=== PATIENT | female | born 1945 | race African-American/Black ===

== ENCOUNTER → 2017-01-04 | Outpatient (CLI) | payer MEDICARE, OTHER ==
[2016-12-28 11:17] VITALS: BP 132/81
[~2017-01-04] MED LIST: AMLO10TA2; ASPI-482 PO; ASPI-612 PO; ATOR10TA60 PO; FURO20TA3 PO; GLIP2.5T4 PO; GLIP5TAB22; LISI-338 PO; LISI2.5T; METO50TA10 PO; MULT1TAB6 PO
--- NOTE | 2017-01-04 11:10 | RAD ---
Indication lung nodule. PET/CT was performed from the skull through the proximal thigh.. CT was performed primarily for localization and attenuation purposes as opposed to primary diagnostic purposes. Blood sugar during the examination was 149. 13.3 mCi of FDG was administered. No prior PET/CT imaging is available. Note is made of the CT examination of the chest 12/24/[address] the visualized brain appears unremarkable. No abnormality is seen in the neck. Known parenchymal soft tissue mass in the right upper lobe is reproduced. There is a suggested small mass in the right upper lobe medially, CT imaging 150. Right pleural effusion is noted. Pretracheal soft tissue mass is noted. There is moderately extensive coronary artery calcification. Imaging through the abdomen and pelvis shows no acute or significant finding. There is some free fluid in the dependent portion of the pelvis. Diverticular disease without evidence of active inflammation is seen associated with the sigmoid colon. On PET the spiculated mass in the right upper lobe is moderately FDG avid with a maximum SUV of approximately 2.9. Pretracheal soft tissue mass in the mediastinum is FDG avid, maximum SUV 4.9. There is, additionally, at least 2 moderately FDG avid right hilar lymph nodes, maximum SUV 3.8. The findings are most compatible with primary malignancy in the right upper lobe with associated metastatic disease to the right hilum and mediastinum. The small pulmonary nodule, suggested on CT medially in the right upper lobe, is not FDG avid. The FDG is physiologically distributed in the abdomen and pelvis. IMPRESSION: Chest findings most compatible with primary malignancy in the right upper lobe with associated metastatic disease to the right hilum and mediastinum. Ancillary findings on CT include a moderate right pleural effusion, some free fluid in the dependent portion of the pelvis and diverticular disease predominantly centered on the sigmoid colon
== END | disposition home or self-care (01) ==
LOC: PETSC 08:00
PROVIDERS: ATTEND Internal Medicine Critical Care Medicine
DX: C34.90 Malignant neoplasm of unspecified part of unspecified bronchus or lung (principal)
CPT/HCPCS: 78815; A9552

== ENCOUNTER → 2017-01-12 | Outpatient (CLI) | payer MEDICARE, OTHER ==
[2016-12-28 11:17] VITALS: BP 132/81
[~2017-01-12] MED LIST changes: -ASPI-612 PO; +ASPI81TA9 PO; +GADOBUTROL 7.5 MMOL/7.5 ML VIAL IV ONE
--- NOTE | 2017-01-12 12:05 | RAD ---
EXAM: Brain MRI with and without contrast. HISTORY: Lung cancer. TECHNIQUE: Multiplanar, multisequence magnetic resonance imaging of the brain was performed prior to and following the administration of 7.5 cc Gadavist intravenous contrast. COMPARISON: None. FINDINGS: There is no restricted diffusion to suggest acute or subacute infarction. There is no susceptibility effect to suggest hemorrhage. There is no mass effect or midline shift. There is no hydrocephalus. There are few scattered focal areas of signal change within the cerebral white matter, a nonspecific finding likely due to chronic small vessel disease. There is mild cerebral volume loss. There is a dilated perivascular space within the left putamen. There is a tiny dilated perivascular space or chronic lacunar infarct within the right thalamus. The orbits, paranasal sinuses and mastoid air cells are unremarkable. There are normal flow voids within the cerebral vessels. No enhancing lesion is seen. IMPRESSION: 1. No acute intracranial finding. 2. Scattered foci of signal change throughout the cerebral white matter, a nonspecific finding likely due to chronic small vessel disease. 3. Possible tiny chronic lacunar infarct within the right thalamus. 4. Cerebral volume loss. Electronically signed by: Sylvia Chang MD (01/12/2017 12:01 PM)
== END | disposition home or self-care (01) ==
LOC: MRI 09:57
PROVIDERS: ATTEND Internal Medicine Hematology & Oncology
DX: C34.11 Malignant neoplasm of upper lobe, right bronchus or lung (principal); I10 Essential (primary) hypertension; Z79.01 Long term (current) use of anticoagulants; Z79.4 Long term (current) use of insulin
CPT/HCPCS: 70553; A9585

== ENCOUNTER 2017-02-21 06:56 | Outpatient (CLI) | payer MEDICARE, OTHER ==
[2017-02-21] VITALS (8 sets, daily range): BP systolic 106–145; BP diastolic 85–95
[~2017-02-21] VITALS: Ht 170.2 cm; Wt 71.2 kg
[~2017-02-21 06:56] MED LIST changes: +ASPI-612 PO; -ASPI81TA9 PO; -GADOBUTROL 7.5 MMOL/7.5 ML VIAL IV ONE
[2017-02-21 07:54] LABS: BASO % 1 % (0-3); CALCIUM 9.1 mg/dL (8.5-10.1); CREATININE 0.8 mg/dL (0.6-1.0); EOS % 3 % (0-3); GFR 85.1; HEMATOCRIT 46.8 % (36.0-47.0); HEMOGLOBIN 15.1 g/dL (12.0-15.5); LYMPH # 0.9 x10^3/uL (1.0-4.8); LYMPH % 25 % (24-48); MEAN CORPUSCULAR HEMOGLOBIN 29 pg (25-35); MEAN CORPUSCULAR HGB CONC 32 g/dL (31-37); MEAN CORPUSCULAR VOLUME 91 fL (79-100); MONO % 18 % (0-9); NEUT % 54 % (31-73); PLATELET COUNT 240 x10^3/uL (140-400); POTASSIUM 3.8 mmol/L (3.5-5.1); RED BLOOD COUNT 5.15 x10^6/uL (3.50-5.40); RED CELL DISTRIBUTION WIDTH 16.3 % (11.5-14.5); WHITE BLOOD COUNT 3.5 x10^3/uL (4.0-11.0)
[2017-02-21] MEDS ORDERED: LIDOCAINE 1%/EPI 1:100,000 20 ML VIAL. ONE (08:00)
[2017-02-21] MEDS ORDERED: HEPARIN PF 500 UNIT/5 ML DISP.SYRIN. IV ONE ×2 (08:00→09:00)
[2017-02-21 08:21] LABS: INR 1.1 (0.8-1.1); PROTHROMBIN TIME PATIENT 13.5 SEC (11.7-14.0)
[2017-02-21] MEDS ORDERED: MIDAZOLAM HCL/PF 2 MG/2 ML VIAL. ONE (08:44)
[2017-02-21] MEDS ORDERED: fentaNYL PF VIAL 100 MCG/2 ML VIAL ONE (08:44)
[2017-02-21] MEDS ORDERED: LIDOCAINE 1% / SOD BICARB 8.4% 20 ML VIAL. IJ ONE (09:00)
[2017-02-21] MEDS ORDERED: MIDAZOLAM HCL/PF 2 MG/2 ML VIAL. IV ONE (09:00)
[2017-02-21] MEDS ORDERED: fentaNYL PF VIAL 100 MCG/2 ML VIAL IV ONE (09:00)
--- NOTE | 2017-02-21 09:42 | PDOC ---
BRIEF OPERATIVE NOTE Date: Feb 21, 2017 Pre-Op Diagnosis Lung Cancer, Right sided Post-Op Diagnosis Same Procedure Performed Placement of left IJ powerport Surgeon [employer] Department Chair Karla VALE 5 Anesthesiologist None Anesthesia Type: Local, Conscious Sedation Specimens Obtained None Findings LIJ vein patent Port tip at prox RA supine Port asp and flush wnl Complications None HARVEY WRIGHT MD Feb 21, 2017 09:42
--- NOTE | 2017-02-21 11:59 | RAD ---
Procedure: Ultrasound and fluoroscopically guided placement of left internal jugular power port. 02/21/2017 11:54 AM Clinical Indication: LUNG CANCER, right-sided Sedation: Conscious sedation was administered for 30 minutes. The patient was monitored by a qualified independent observer throughout the time of sedation. Please refer to the medical record for exact doses of medications utilized to achieve moderate sedation. Fluoroscopy time: 1.5 minutes Dose area product: 3 Gycm2 Consent: The procedure was explained in its entirety to the patient or the patients designated underwriting service representative by a member of the treatment team, including a discussion of the risks, benefits and commonly accepted alternatives to the procedure, as well as the expected consequences of no therapy whatsoever. Discussion of the risks included, but was not limited to, those that are most frequent and those that are rare but possibly severe or life-threatening, as well as the possibility of unforeseen complications. Sterility: All elements of maximal sterile barrier technique including the use of a cap, mask, sterile gown, sterile gloves, large sterile sheet, appropriate hand hygiene, and 2% chlorhexidine for cutaneous antisepsis (or acceptable alternative antiseptic per current guidelines) were followed for this procedure. Technique and Findings: Following informed consent, the patient was prepped and draped in the usual sterile fashion. Ultrasound interrogation of the right neck revealed patency and compressibility of the left internal jugular vein. A 21-gauge micropuncture was then used to gain access to this vein under ultrasound guidance. A hard copy ultrasound image was recorded. The needle was exchanged over a wire for a sheath. A small incision was made several centimeters inferior to the left clavicle. A catheter was advanced from the small skin incision to the venotomy site, and then advanced through a peel-away sheath to the level of the cavoatrial junction. The catheter was trimmed to length. The catheter was attached to the port reservoir. The port was found to flush and aspirate normally. Catheter was secured in place with 2-0 Prolene suture and a sterile dressing was applied. Catheter was packed with heparin per protocol. The neck dermatotomy was closed with Dermabond. The chest incision was closed in layers using 4-0 Vicryl suture. No immediate complications were identified. Sterile dressings were applied. Impression: Successful ultrasound and fluoroscopically guided placement of a left internal jugular power port
== END 2017-02-21 11:38 | disposition home or self-care (01) ==
LOC: INTRAD 06:56
PROVIDERS: ATTEND Internal Medicine Hematology & Oncology
DX: C34.91 Malignant neoplasm of unspecified part of right bronchus or lung (principal); E78.00 Pure hypercholesterolemia, unspecified; I10 Essential (primary) hypertension; M19.90 Unspecified osteoarthritis, unspecified site; E11.9 Type 2 diabetes mellitus without complications; F41.9 Anxiety disorder, unspecified; Z90.49 Acquired absence of other specified parts of digestive tract; Z87.39 Personal history of other diseases of the musculoskeletal system and connective tissue; F17.200 Nicotine dependence, unspecified, uncomplicated; Z72.89 Other problems related to lifestyle; Z88.8 Allergy status to other drugs, medicaments and biological substances; Z79.01 Long term (current) use of anticoagulants
CPT/HCPCS: 36415; 36561; 76937; 77001; 80048; 85027; 85610; 99152; 99153; C1751; C1887; C1892; J0690; J2250; J3010; J1644